=== PATIENT | female | born 1980 | race Two or more races ===

== ENCOUNTER 2018-01-20 07:24 | Outpatient (CLI) | payer OTHER | END 2018-01-20 07:32 | disposition home or self-care (01) | LOC: SONOGRAMA 07:24 | DX: E04.2 Nontoxic multinodular goiter (principal) ==

== ENCOUNTER 2018-01-29 05:10 | Emergency (ER) | payer OTHER ==
[~2018-01-29] VITALS: Ht 160 cm; Wt 100.2 kg
== END 2018-01-29 10:21 | disposition home or self-care (01) ==
LOC: ER 05:10
DX: J40 Bronchitis, not specified as acute or chronic (principal); J32.8 Other chronic sinusitis

== ENCOUNTER 2018-10-17 15:41 | Emergency (ER) | payer OTHER ==
[~2018-10-17] VITALS: Ht 160 cm; Wt 99.8 kg
[2018-10-17] MEDS ORDERED: SYNTHROID112 MCG (16:42)
== END 2018-10-17 21:58 | disposition home or self-care (01) ==
LOC: ER 15:41
DX: J11.1 Influenza due to unidentified influenza virus with other respiratory manifestations (principal)

== ENCOUNTER → 2019-08-26 | Outpatient (CLI) | payer OTHER ==
[~2019-08-26] MED LIST: SYNTHROID112 MCG
== END | disposition home or self-care (01) ==
LOC: SONOGRAMA 07:38
DX: R59.1 Generalized enlarged lymph nodes (principal)